=== PATIENT | male | born 1930 | race Caucasian/White ===

== ENCOUNTER → 2017-11-19 | Outpatient (CLI) | payer MEDICARE, BC ==
[~2017-11-19] MED LIST: ADVAIR 100-501 EACH; ASPIRIN EC325 MG PO; ASPIRIN81 M2 PO; ATACAND32 MG PO; CELECOXIB200 MG PO; CORGARD20 MG PO; HYDROCODON-ACE1 EAC7 PO; IRBESARTAN300 MG PO; IRON325 M1 PO; LO-DOSE ASPIRIN81 M1 PO; NORVASC10 MG PO; OCUVITE TABLET1 EACH PO; OMEGA-31000 M1 PO; SENNA-TIME S T1 EACH PO
== END | disposition home or self-care (01) ==
LOC: CDC 08:38
DX: Z01.810 Encounter for preprocedural cardiovascular examination (principal); I44.0 Atrioventricular block, first degree; I45.4 Nonspecific intraventricular block; R00.1 Bradycardia, unspecified
CPT/HCPCS: 93000

== ENCOUNTER 2018-02-03 06:14 | Day surgery (SDC) | payer OTHER, BC ==
[~2018-02-03] VITALS: Ht 182.9 cm; Wt 90.7 kg
[2018-02-03 06:50] LABS: BASOPHIL (%) 0.9 % (0-1); BASOPHIL COUNT 0.1 K/uL (0-0.1); EOSINOPHIL (%) 5.2 % (0-5); EOSINOPHIL COUNT 0.4 K/uL (0-0.3); HEMATOCRIT 46.8 % (38.0-50.0); HEMOGLOBIN 15.6 G/DL (12.5-16.6); IMMATURE GRANULOCYTE (%) 2.2 % (0.0-0.7); LYMPHOCYTE (%) 21.2 % (15-42); LYMPHOCYTE COUNT 1.5 K/uL (1.0-2.8); MCH 29.9 PG (29.0-34.0); MCHC 33.3 G/DL (30.0-36.0); MCV 89.7 FL (86-99); MONOCYTE (%) 12.8 % (3-12); MONOCYTE COUNT 0.9 K/uL (0-0.8); NEUTROPHIL (%) 57.7 % (45-76); PLATELET COUNT 216 K/uL (156-360); RBC DIS.WIDTH-CV 14.6 % (11.8-14.6); RBC DIS.WIDTH-SD 48.1 % (39-53); RED BLOOD COUNT 5.22 M/uL (4.00-5.50); WHITE BLOOD COUNT 6.9 K/uL (4.1-10.2)
[2018-02-03 07:24] VITALS: BP 148/79
[2018-02-03 07:26] LABS: CHLORIDE 106 MEQ/L (99-109); GFR ESTIMATE (CALCULATED) > 59 mL/min/ (58.99-99999); GLUCOSE 98 mg/dL (70-99); POTASSIUM 4.8 MEQ/L (3.7-5.4); SODIUM 141 MEQ/L (136-147); UREA NITROGEN (BUN) 20 mg/dL (9-23)
[2018-02-03 11:09] VITALS: BP 153/74
[2018-02-03 12:22] VITALS: BP 120/60
== END 2018-02-03 12:37 | disposition home or self-care (01) ==
LOC: SDC
PROVIDERS: Urology
DX: N13.2 Hydronephrosis with renal and ureteral calculous obstruction (principal); N13.5 Crossing vessel and stricture of ureter without hydronephrosis; N40.1 Benign prostatic hyperplasia with lower urinary tract symptoms; N13.8 Other obstructive and reflux uropathy; N32.3 Diverticulum of bladder; N30.91 Cystitis, unspecified with hematuria; Z79.82 Long term (current) use of aspirin; Z96.651 Presence of right artificial knee joint; Z90.5 Acquired absence of kidney; Z90.49 Acquired absence of other specified parts of digestive tract; I10 Essential (primary) hypertension; Z85.72 Personal history of non-Hodgkin lymphomas; Z87.891 Personal history of nicotine dependence
CPT/HCPCS: 80048; 85025; C1769; C1876; J0131; J0330; J0690; J1100; J1170; J2405